=== PATIENT | male | born 1945 | race African-American/Black ===

== ENCOUNTER 2017-07-25 21:21 | Emergency (ER) | payer MEDICARE, OTHER ==
[~2017-07-25] VITALS: Ht 172.7 cm; Wt 66.0 kg
[~2017-07-25 21:21] MED LIST: AMLO10TA80 PO; HYDR25TA PO; MELO-106 PO
[2017-07-25] MEDS ORDERED: HYDROCODONE/ACETAMINOPHEN 5/325MG TABLET PO ONE (23:15)
[2017-07-26] MEDS ORDERED: SODIUM CHLORIDE 0.9% 1,000 ML IV ONE (01:30)
[2017-07-26 04:56] VITALS: BP 99/54
== END 2017-07-26 05:30 | disposition home or self-care (01) ==
LOC: ER 21:21
DX: M17.11 Unilateral primary osteoarthritis, right knee (principal); F17.210 Nicotine dependence, cigarettes, uncomplicated
CPT/HCPCS: 96360; 96361; 99285; J7030

== ENCOUNTER 2017-09-13 17:07 | Emergency (ER) | payer MEDICARE, OTHER ==
[~2017-09-13] VITALS: Ht 170.2 cm; Wt 75.0 kg
[2017-09-13] MEDS ORDERED: SODIUM CHLORIDE 0.9% 1,000 ML IV ONE (18:31)
[2017-09-13] MEDS ORDERED: ONDANSETRON HCL 4MG/2ML VIAL IV STA (18:31)
[2017-09-13 18:54] LABS: BASOPHILS % 1.2 % (0.0-2.0); EOSINOPHILS % 1.4 % (0.0-5.0); HEMATOCRIT. 39.5 % (42.0-52.0); HEMOGLOBIN. 13.3 g/dL (14.0-18.0); LYMPHOCYTES % 34.6 % (20.0-50.0); MEAN CORPUSCULAR HEMOGLOBIN 32.7 pg (28.0-32.0); MEAN CORPUSCULAR VOLUME 97.1 fL (80.0-94.0); MEAN PLATELET VOLUME 7.5 fl (7.4-10.4); MONOCYTES % 10.8 % (2.0-8.0); PLATELET 202 x1000/uL (130-400); RED BLOOD CELL COUNT 4.07 mill/uL (4.7-6.1); RED CELL DISTRIBUTION WIDTH 13.8 % (11.6-14.6)
[2017-09-13 18:57] LABS: CHLORIDE 100 mEq/L (98-107)
[2017-09-13 19:05] LABS: CARBON DIOXIDE 28 mEq/L (21-32); ETHANOL BLOOD 99 mg/dL
[2017-09-13 20:00] VITALS: BP 100/52
== END 2017-09-13 20:20 | disposition home or self-care (01) ==
LOC: ER 17:07
DX: F10.129 Alcohol abuse with intoxication, unspecified (principal); N17.9 Acute kidney failure, unspecified; M19.90 Unspecified osteoarthritis, unspecified site; Y90.4 Blood alcohol level of 80-99 mg/100 ml
CPT/HCPCS: 36415; 80053; 85025; 96361; 96374; 99284; G0482; J2405; J7030

== ENCOUNTER 2021-09-01 12:30 | Emergency (ER) | payer MEDICARE, OTHER ==
[~2021-09-01] VITALS: Ht 167.6 cm; Wt 73.0 kg
[2021-09-01 12:34] VITALS: BP 142/68
[2021-09-01] MEDS ORDERED: HYDROCODONE/ACETAMINOPHEN 5/325MG TABLET PO ONE (12:45)
[2021-09-01 14:28] LABS: BASOPHILS % 1.2 % (0.0-2.0); EOSINOPHILS % 0.9 % (0.0-5.0); HEMATOCRIT. 50.4 % (42.0-52.0); HEMOGLOBIN. 16.6 g/dL (14.0-18.0); LYMPHOCYTES % 33.9 % (20.0-50.0); MEAN CORPUSCULAR HEMOGLOBIN 30.9 pg (28.0-32.0); MEAN CORPUSCULAR VOLUME 93.4 fL (80.0-94.0); MEAN PLATELET VOLUME 7.4 fl (7.4-10.4); MONOCYTES % 6.9 % (2.0-8.0); NEUTROPHILS % 57.1 % (40.0-76.0); PLATELET 258 x1000/uL (130-400); RED BLOOD CELL COUNT 5.39 mill/uL (4.7-6.1)
[2021-09-01 14:32] LABS: CHLORIDE 107 mEq/L (98-107)
[2021-09-01 14:37] LABS: ETHANOL BLOOD 86 mg/dL
== END 2021-09-01 14:36 | disposition left against medical advice (07) ==
LOC: ER 12:30
DX: R07.89 Other chest pain (principal); G89.29 Other chronic pain; M25.512 Pain in left shoulder; F10.129 Alcohol abuse with intoxication, unspecified; Y90.4 Blood alcohol level of 80-99 mg/100 ml; I44.4 Left anterior fascicular block; I10 Essential (primary) hypertension
CPT/HCPCS: 36415; 71045; 73030; 80053; 83880; 84484; 85025; 93005; 99285; G0480; 80320

== ENCOUNTER 2024-07-27 07:37 | Emergency (ER) | payer MEDICARE, OTHER ==
[~2024-07-27] VITALS: Ht 167.6 cm; Wt 82.0 kg
[2024-07-27 07:40] VITALS: BP 142/73; PULSE 83; RESP 20; TEMP 98.9; O2SAT 95
[2024-07-27 09:07] LABS: CLARITY URINE CLEAR (CLEAR); COLOR URINE YELLOW (YELLOW); GLUCOSE URINE NEGATIVE (NEGATIVE); KETONES URINE NEGATIVE (NEGATIVE); LEUKOCYTE ESTERASE URINE NEGATIVE (NEGATIVE); NITRITE URINE NEGATIVE (NEGATIVE); OCCULT BLOOD URINE NEGATIVE (NEGATIVE); PH URINE 6.5 (4.5-8.0); PROTEIN URINE NEGATIVE (NEGATIVE); SPECIFIC GRAVITY URINE 1.008 (1.005-1.030)
[2024-07-27] MEDS ORDERED: IBUP-2741 PO (09:23)
== END 2024-07-27 09:06 | disposition home or self-care (01) ==
LOC: ER 07:37
DX: R30.0 Dysuria (principal); I10 Essential (primary) hypertension; N28.9 Disorder of kidney and ureter, unspecified
CPT/HCPCS: 81003; 99283